=== PATIENT | male | born 1995 | race Caucasian/White ===

== ENCOUNTER 2020-05-10 11:01 | Emergency (ER) | payer BC, SELFPAY ==
--- NOTE | 2020-05-10 11:03 | ED.GENADULT ---
HPI - General Adult General Chief complaint: Wound/Laceration Stated complaint: Laceration to chin Time Seen by Provider: 05/10/20 11:03 Source: patient Mode of arrival: ambulatory Limitations: no limitations History of Present Illness HPI narrative: 24-year-old male patient presents to the [facility] with complaints of a chin laceration. Patient states he hit it on a metal bar today while working. Patient states his last tetanus shot was before he went into high school. Patient denies any fevers, body aches or chills. Related Data Home Medications Medication Instructions Recorded Confirmed No Home Medications 05/10/20 05/10/20 Allergies Allergy/AdvReac Type Severity Reaction Status Date / Time No Known Allergies Allergy Verified 05/10/20 11:35 Review of Systems Review of Systems: Narrative: CONSTITUTIONAL: Denies fever, chills, or sweats. EYES: Denies visual changes, redness, or discharge. ENT: Denies rhinorrhea, congestion, sore throat, or otalgia. CARDIOVASCULAR: Denies chest pain, palpitations, or edema. RESPIRATORY: Denies cough or dyspnea. GASTROINTESTINAL: Denies abdominal pain, nausea, vomiting, or diarrhea. GENITOURINARY: Denies dysuria or hematuria. SKIN: Denies rash or itching. Positive laceration to chin. MUSCULOSKELETAL: Denies back pain, joint pain, or myalgia. NEUROLOGIC: Denies headache, numbness, or weakness. PSYCHIATRIC: Denies anxiety or depression. [facility] Social History Social History Gender identity (if verbalized by the patient): Male Comments At the time of my signature I agree with nursing past medical history, surgical, social, and family history. There is no relevant family history pertinent to the presenting complaint. Exam Narrative: Exam Narrative: GENERAL: Well-appearing, well-nourished, and in no acute distress. HEAD: Normocephalic, atraumatic. EYES: PERRLA and EOMI. ENT: Nares clear, no rhinorrhea or epistaxis. Mucous membranes moist. NECK: Supple. No lymphadenopathy CHEST: Clear to auscultation. No respiratory distress. HEART: Regular rate and rhythm. No murmur heard. Normal peripheral pulses. ABDOMEN: Soft, nontender, nondistended, normal active bowel sounds. EXTREMITIES: Normal range of motion. No edema. SKIN: Warm, dry, no rash. Patient has approximately 1 cm laceration to the chin that appears superficial. No active bleeding at this time. No large gaping noted. Patient has good range of motion to the chin. NEURO: No focal deficits. Alert and oriented x3. Course Vital Signs Vital signs: Vital Signs Temperature 36.3 C L 05/10/20 11:19 Pulse Rate 76 05/10/20 11:19 Respiratory Rate 16 05/10/20 11:19 Blood Pressure 128/80 05/10/20 11:19 Pulse Oximetry 100 05/10/20 11:19 Temperature 36.3 C L 05/10/20 11:19 Pulse Rate 76 05/10/20 11:19 Respiratory Rate 16 05/10/20 11:19 Blood Pressure 128/80 05/10/20 11:19 Pulse Oximetry 100 05/10/20 11:19 Vital signs reviewed Procedures Laceration Laceration 1: Date: 05/10/20 Time: 11:58 Site: face Size (cm): 1 Description: linear Depth: simple, single layer Local Anesthetic: none Pre-repair: wound explored and irrigated ====== Skin Level ====== Skin layer closed with: dermabond and steri strips ====== Subcutaneous Layer ====== ====== Muscle Layer ====== ====== Tendon Layer ====== Dressing: The Procedure was explained and verbal consent was obtained. Copious irrigation was done with saline and Shur-Clens and the wound was explored. There was no foreign body or deep structure injury noted. Patient had good range of motion. Wound edges were approximated with good alignment using Dermabond and Steri-Strips. There were 2 Steri-Strips placed. nonadherent dressing over it and taped in place. The patient tolerated the procedure well without adverse effects.
[2020-05-10 11:19] VITALS: BP 128/80; PULSE 76; RESP 16; TEMP 36.3; O2SAT 100
[2020-05-10] MEDS: TETANUS,DIPHTHERIA,AC PERTUSSIS ADULT (0.5 ML) BOOSTRIX IM (12:13)
== END 2020-05-10 12:28 | disposition home or self-care (01) ==
PROVIDERS: Emergency Provider Nurse Practitioner Family
DX: S01.81XA Laceration without foreign body of other part of head, initial encounter (principal); W22.8XXA Striking against or struck by other objects, initial encounter; Y99.0 Civilian activity done for income or pay; Z23 Encounter for immunization
CPT/HCPCS: 12001; 90471; 90715; 99202; G0463

== ENCOUNTER 2021-06-10 09:19 | Emergency (ER) | payer OTHER, SELFPAY ==
[2021-06-10 09:48] VITALS: BP 125/72; PULSE 77; RESP 16; TEMP 36.1; O2SAT 100
--- NOTE | 2021-06-10 10:29 | ED.URI ---
HPI - URI/Sore Throat General Chief Complaint: Upper Respiratory Infection Stated Complaint: Sore Throat Time Seen by Provider: 06/10/21 10:29 Source: patient Mode of arrival: ambulatory Limitations: no limitations History of Present Illness HPI Narrative: 25-year-old male presents with complaint of sore throat, chills, body aches, fatigue that started last night. States that when he went into work. His temperature scanned at 100.4. States that now he has to stay off work for 5 days and take a Covid on test on fifth day to return. Patient is concerned that he may have strep throat. No strep exposure. Denies nausea vomiting. Denies cough. no chest pain or shortness of breath. All systems reviewed and negative except as noted above. Related Data Home Medications Medication Instructions Recorded Confirmed No Home Medications 05/10/20 06/10/21 Allergies Allergy/AdvReac Type Severity Reaction Status Date / Time No Known Allergies Allergy Verified 06/10/21 10:26 Review of Systems Review of Systems: CONSTITUTIONAL: Reports fever, chills, or sweats. EYES: Denies visual changes, redness, or discharge. ENT: Denies rhinorrhea, congestion. Reports sore throat. Denies otalgia. CARDIOVASCULAR: Denies chest pain, palpitations, or edema. RESPIRATORY: Denies cough or dyspnea. GASTROINTESTINAL: Denies abdominal pain, nausea, vomiting, or diarrhea. GENITOURINARY: Denies dysuria or hematuria. SKIN: Denies rash or itching. MUSCULOSKELETAL: Denies back pain, joint pain, or myalgia. NEUROLOGIC: Denies headache, numbness, or weakness. PSYCHIATRIC: Denies anxiety or depression. All other systems reviewed are negative, except as documented in HPI. PMFSH Social History Social History Gender identity (if verbalized by the patient): Male Comments At time of signature, agree with nursing past medical, surgical, social and family history. There is no relevant family history pertinent to the presenting complaint. Exam Narrative: GENERAL: This is a well-nourished, well-developed patient, in no apparent distress. HEAD: normocephalic, atraumatic. EYES: PERRL. Sclera clear/white. Vision is grossly intact. EARS: External ears normal, auditory canals clear and without drainage, TMs normal without perforation. Hearing grossly intact. NOSE: External nose normal with no obvious nasal discharge, nares without redness, no rhinorrhea. THROAT: Mucous membranes moist, erythema to posterior pharynx. NECK: Neck supple, non-tender without lymphadenopathy, masses or thyromegaly. CARDIOVASCULAR: Regular rate and rhythm without murmurs, gallops, or rubs. RESPIRATORY: Clear to auscultation. Breath sounds equal bilaterally. No wheezes, rales, or rhonchi. SKIN: warm, Dry, intact with no suspicious lesions or rash, good texture and turgor. NEURO: awake, alert, and oriented to person, place and time. There were no obvious focal neurologic abnormalities. EXTREMITIES: Normal range of motion to all extremities. Course Course Level of Care: Express Care Visit Vital Signs Vital signs: Vital Signs Temperature 36.1 C L 06/10/21 09:48 Pulse Rate 77 06/10/21 09:48 Respiratory Rate 16 06/10/21 09:48 Blood Pressure 125/72 06/10/21 09:48 Pulse Oximetry 100 06/10/21 09:48 Temperature 36.1 C L 06/10/21 09:48 Pulse Rate 77 06/10/21 09:48 Respiratory Rate 16 06/10/21 09:48 Blood Pressure 125/72 06/10/21 09:48 Pulse Oximetry 100 06/10/21 09:48 Reviewed MDM - URI/Sore Throat MDM Narrative Medical decision making narrative: Patient is aware of diagnosis, understands and agrees to treatment plan. Anticipatory guidance given. Patient agrees to follow-up as directed and is aware of reasons to seek care at the emergency department. Portions of this record may have been created with voice recognition software Differential Diagnosis Differential diagnosis: Likely upper respirato
== END 2021-06-10 10:38 | disposition home or self-care (01) ==
PROVIDERS: Emergency Provider Nurse Practitioner Family
DX: J02.8 Acute pharyngitis due to other specified organisms (principal)
CPT/HCPCS: 87081; 87880; 99213; G0463

== ENCOUNTER 2021-07-31 07:36 | Emergency (ER) | payer OTHER, SELFPAY ==
--- NOTE | 2021-07-31 08:07 | ECG_ITS ---
Measurements Intervals [place] Rate: 71 P: 81 IN: 149 QRS: 81 QRSD: 102 T: 47 QT: 368 QTc: 400 Interpretive Statements SINUS RHYTHM ST ELEVATION, LIKELY EARLY REPOLARIZATION BORDERLINE ECG NO PREVIOUS ECG AVAILABLE FOR COMPARISON Electronically Signed On 07-31-2021 10:26:43 CDT by Rory Reynolds M.D.
--- NOTE | 2021-07-31 08:08 | ED.BACK ---
HPI - Back Pain/Injury General Chief Complaint: GI Bleed Stated Complaint: nasal/anal bleeding, heart palp Time Seen by Provider: 07/31/21 07:39 History of Present Illness HPI Narrative: 25-year-old male with history of depression presenting to the emergency department for evaluation of nasal bleeds and rectal bleeds. Patient states over the last few days he has had increased nasal bleeds. Patient states he had been scratching the inside of his nose due to the itching. Patient states he does have the air conditioner running in his house. Patient states that the context of 2 bleeds were with exertion and lifting. Bleeds did resolve spontaneously. Patient has no active bleeding at this time. Patient also does report passing some bright red blood with bowel movements. Patient did have recent diarrhea and states that he now has solid stool and when passing solid stool he does have some blood mixed with the stool. Patient denies any bowel movements of just blood. Patient denies any prior history of hemorrhoids. Patient does have a prior history of appendicitis. Related Data Home Medications Medication Instructions Recorded Confirmed No Home Medications 05/10/20 06/10/21 Allergies Allergy/AdvReac Type Severity Reaction Status Date / Time No Known Allergies Allergy Verified 07/31/21 08:31 Review of Systems Review of Systems: CONSTITUTIONAL: Denies fever, chills, or sweats. EYES: Denies visual changes, redness, or discharge. ENT: See HPI CARDIOVASCULAR: Denies chest pain, palpitations, or edema. RESPIRATORY: Denies cough or dyspnea. GASTROINTESTINAL: See HPI GENITOURINARY: Denies dysuria or hematuria. SKIN: Denies rash or itching. MUSCULOSKELETAL: Denies back pain, joint pain, or myalgia. NEUROLOGIC: Denies headache, numbness, or weakness. PSYCHIATRIC: Does report depression PMFSH Social History Social History Gender identity (if verbalized by the patient): Male Exam Narrative: APPEARANCE: Well appearing, no pain, no distress, well-nourished. HEAD: normocephalic, atraumatic. EYES: PERRLA/EOMI, conjunctivae clear. NOSE: no drainage or epistaxis Areas of friable mucosa with no active bleeding EARS:TMS clear with good light reflex. THROAT: Pharynx clear, no exudate. NECK: Supple. No adenopathy, no masses. RESPIRATORY: Airway patent, respirations nonlabored. Clear to auscultation bilaterally, no rales, rhonchi, wheezing. CARDIOVASCULAR: Regular rate and rhythm without murmurs rubs or gallops. ABDOMINAL: Soft, nontender, nondistended, normal bowel sounds. Nonthrombosed external hemorrhoid on ALEKSANDRA. Hemoccult negative on ALEKSANDRA. No internal hemorrhoids palpated. MUSCULOSKELETAL: Moves all extremities. Strength/ROM intact, No edema, No calf tenderness. NEURO: Alert. Cranial nerves II through XII intact. Grossly intact SKIN: Warm, dry. Normal Color Course Course Emergency Course: Patient is Hemoccult negative on the ALEKSANDRA. No active bleeding. Patient was updated on results of the work-up. Patient declined wanting to talk to a counselor. Patient denies any current suicidal ideation but states he has had suicidal ideation previously. Suspect that the nasal bleeding is due to dry air or physical irritation of the nasal mucosa. Rectal bleeding is most likely due to internal hemorrhoids secondary to increased time spent stooling due to the diarrhea. Patient was educated on preventative care and on the importance of close follow-up with a primary care physician. Vital Signs Vital signs: Vital Signs Temperature 98.0 F 07/31/21 08:15 Pulse Rate 74 07/31/21 08:15 Respiratory Rate 18 07/31/21 08:15 Blood Pressure 119/77 07/31/21 08:15 Pulse Oximetry 99 07/31/21 08:15 Oxygen Delivery Room Air 07/31/21 08:15 Temperature 98.0 F 07/31/21 08:15 Pulse Rate 73 07/31/21 10:19 Respiratory Rate 16 07/31/21 10:19 Blood Pressure 103/68 06/0
[2021-07-31 08:15] VITALS: BP 119/77; PULSE 74; RESP 18; TEMP 36.7; O2SAT 99
[2021-07-31] MEDS: SODIUM CHLORIDE 0.9% IV 1,000 ML 999 ML IV CONT (08:34)
[2021-07-31 08:43] LABS: Basophils Percent Auto 0.5 % (0.2-1.2); Eosinophils Absolute Auto 0.1 K/mm3 (0-0.3); Eosinophils Percent Auto 0.9 % (0-4.4); Hematocrit 39.3 % (42.0-52.0); Hemoglobin 13.5 g/dL (14.0-18.0); Immature Granulocyte Absolute 0.02 K/mm3 (0.00-0.031); Immature Granulocyte Percent A 0.3 % (0-0.5); Lymphocytes Absolute Auto 1.25 K/mm3 (0.9-3.2); Lymphocytes Percent Auto 19.7 % (18.3-44.2); Mean Corpuscular HGB Conc 34.4 g/dl (32-36); Mean Corpuscular Hemoglobin 30.8 pg (26-34); Mean Corpuscular Volume 89.5 fl (80-100); Mean Platelet Volume 10.4 fl (7.4-10.4); Monocytes Absolute Auto 0.6 K/mm3 (0.1-0.6); Monocytes Percent Auto 9.8 % (2.6-8.5); Neutrophils Absolute Auto 4.4 K/mm3 (1.3-6.7); Neutrophils Percent Auto 68.8 % (45.5-73.1); Platelet Count Result 180 k/mm3 (150-375); Red Blood Count 4.39 M/mm3 (4.6-6.20); Red Cell Distribution Width 12.7 % (11.5-14.5); White Blood Count 6.4 K/mm3 (4.5-10.0)
[2021-07-31 08:48] LABS: Lactic Acid Reflex 0.7 mmol/L (0.7-2.0); Magnesium 1.8 mg/dL (1.6-2.3)
[2021-07-31 08:50] LABS: Alanine Aminotransferase 24 U/L (6-50); Albumin Level 4.6 g/dL (3.5-5.1); Alkaline Phosphatase 66 U/L (38-126); Anion Gap 9 mmol/L (8-16); Aspartate Amino Transferase 25 U/L (17-59); Blood Urea Nitrogen 16 mg/dL (9-20); Calcium 8.7 mg/dL (8.4-10.2); Carbon Dioxide 23 mmol/L (22-30); Chloride 107 mmol/L (98-107); Estimated CRCL calculation 119 ml/min; Estimated Glomerular Filt Rate > 60; Glucose 94 mg/dL (65-110); Potassium 3.6 mmol/L (3.4-5.0); Sodium 139 mmol/L (137-145)
[2021-07-31 08:56] LABS: INR 1.3; Prothrombin Time 15.5 Seconds (11.1-14.7)
[2021-07-31 08:57] LABS: Partial Thromboplastin Time 28.8 SECONDS (22.3-36.8)
[2021-07-31 09:18] VITALS: BP 112/68; PULSE 63; RESP 18; O2SAT 100
[2021-07-31 09:31] LABS: Thyroid Stimulating Hormone Reflex 0.342 uIU/mL (0.465-4.68)
[2021-07-31 10:19] VITALS: BP 103/68; PULSE 73; RESP 16; O2SAT 98
[2021-07-31 10:20] LABS: Free T4 Free Thyroxine Reflex 1.04 ng/dL (0.78-2.19)
[2021-07-31 11:11] LABS: Total Triiodothyronine (T3) 1.34 NG/ML (0.97-1.69)
== END 2021-07-31 10:21 | disposition home or self-care (01) ==
PROVIDERS: Emergency Provider Emergency Medicine
DX: R04.0 Epistaxis (principal); K64.9 Unspecified hemorrhoids
CPT/HCPCS: 36415; 80053; 83605; 83735; 84439; 84443; 84480; 85025; 85610; 85730; 93005; 96360; 99283; J7030

== ENCOUNTER 2022-01-06 10:14 | Emergency (ER) | payer OTHER, SELFPAY ==
--- NOTE | ~2022-01-06 | XR_ITS ---
EXAMINATION: XR tibia fibula LT 2V INDICATION: Left leg pain TECHNIQUE: Two views of the left tibia and fibula are obtained on four radiographs. COMPARISON: None available FINDINGS: No fracture, dislocation, or subluxation. The bones, soft tissues, and joint spaces are nor mal. IMPRESSION: 1. No acute osseous abnormality. Reviewed, dictated and finalized at location A. [employer]
[2022-01-06 10:18] VITALS: BP 118/92; PULSE 72; RESP 12; TEMP 37.1; O2SAT 98
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
== END 2022-01-06 12:11 | disposition home or self-care (01) ==
PROVIDERS: Emergency Provider Nurse Practitioner Family
DX: S80.12XA Contusion of left lower leg, initial encounter (principal); V49.88XA Car occupant (driver) (passenger) injured in other specified transport accidents, initial encounter
CPT/HCPCS: 73590; 99283

== ENCOUNTER 2022-06-24 15:04 | Emergency (ER) | payer OTHER, SELFPAY ==
--- NOTE | 2022-06-24 15:10 | ED.URI ---
HPI - URI/Sore Throat General Chief Complaint: Upper Respiratory Infection Stated Complaint: Sore Throat Time Seen by Provider: 06/24/22 15:10 Source: patient, RN notes reviewed and old records reviewed Mode of arrival: ambulatory Limitations: no limitations History of Present Illness HPI Narrative: 26-year-old male presents to the [facility] with complaints of a sore throat since last night. Patient reports that his girlfriend and child were here yesterday diagnosed with strep No treatment prior to arrival MD elicited complaint: sore throat Onset (ago): hour(s) Treatments prior to arrival: none Related Data Home Medications Medication Instructions Recorded Confirmed No Home Medications 06/24/22 06/24/22 Allergies Allergy/AdvReac Type Severity Reaction Status Date / Time No Known Allergies Allergy Verified 07/31/21 08:31 Review of Systems Review of Systems: All systems reviewed & are unremarkable except as noted in HPI and below Constitutional: Constitutional: Reports no additional constitutional complaints Eyes: Eyes: Reports no additional eye complaints ENT: Reports as per HPI Cardiovascular: Cardiovascular: Reports no additional cardiovascular complaints, Denies chest pain and Denies dyspnea Respiratory: Respiratory: Reports no additional respiratory complaints, Denies chest congestion, Denies cough and Denies dyspnea Gastrointestinal: Gastrointestinal: Reports no additional gastrointestinal complaints, Denies abdominal pain, Denies nausea and Denies vomiting Musculoskeletal: Musculoskeletal: Reports no additional musculoskeletal complaints Integumentary/Breasts: Skin/Breast: Reports system reviewed and no additional complaints, except as docu Neurologic: Reports system reviewed and no additional complaints, except as documented Psychiatric: Psychiatric: Reports no additional psychiatric complaints Allergic/Immunologic: Allergic/Immunologic: Reports no additional allergic/immunologic complaints PMFSH Social History Social History Gender identity (if verbalized by the patient): Male Comments At the time of my signature, I reviewed and agree with the nursing past medical, surgical, social, and family history. There is no relevant family history pertinent to the patient complaint. Exam Const: General: cooperative, healthy appearing, comfortable, no acute distress, well developed, alert and well nourished Nutritional Appearance: well nourished Orientation/consciousness: patient oriented x3 Limitations: no limitations HENMT: Head: normal to inspection Ears: hearing grossly normal bilaterally and external ears normal Face/Nose/Sinus: Normal external nose present, Normal nares present, Normal nasal mucous membranes and turbinates present and normal facial exam Face and sinus: normal facial exam Mouth: Yes Normal oral and palatal mucosa present, Yes lip normal and Yes moist mucous membranes Throat: posterior oropharynx normal, tonsils normal, uvula midline and postnasal drainage Eyes: General: appearance normal, both eyes and all related structures Alignment and Position: alignment normal Periorbital: periorbital findings normal Conjunctivae: conjunctivae normal Pupils: Equal, round and reactive pupils present EOM: EOMs intact bilaterally Neck: Neck: normal visual inspection, full ROM, no lymphadenopathy and no meningeal signs Chest: Chest palpation & inspection: normal inspection of the chest Resp: Effort & Inspection: normal respiratory effort and able to speak in complete sentences Auscultation: clear to auscultation bilaterally, no crackles, no rales, no rhonchi and no wheezes Cardio: Rate: regular rate Rhythm: regular rhythm Back/Spine/Pelvis: Cervical Spine: cervical ROM normal Thoracic/Lumbar Spine: No thoracic spinal tenderness Skin: General skin exam: normal color and no rashes or lesions noted Lesions: no lesions Rashes: no
[2022-06-24 15:23] VITALS: BP 131/55; PULSE 99; RESP 20; TEMP 36.6; O2SAT 99
== END 2022-06-24 15:35 | disposition home or self-care (01) ==
PROVIDERS: Emergency Provider Nurse Practitioner
DX: J02.9 Acute pharyngitis, unspecified (principal)
CPT/HCPCS: 87081; 87880; 99213; G0463

== ENCOUNTER 2024-02-28 19:02 | Emergency (ER) | payer BC, SELFPAY ==
[2024-02-28 19:12] VITALS: BP 140/84; PULSE 74; RESP 16; TEMP 36; O2SAT 99
--- NOTE | 2024-02-28 19:26 | ED_ITS ---
HPI - URI/Sore Throat General Chief Complaint: Upper Respiratory Infection Stated Complaint: Sore Throat/Sinus/Chest/Vomiting Time Seen by Provider: 02/28/24 19:26 Source: patient, RN notes reviewed and old records reviewed Mode of arrival: ambulatory Limitations: no limitations History of Present Illness HPI Narrative: Patient presents with complaints of six hours of subjective fever, congestion, nausea, vomiting. He denies any abdominal pain. He reports that he has been taking Mucinex for his symptoms. He voices no other concerns or complaints at this time Related Data Home Medications ?Medication ?Instructions ?Recorded ?Confirmed ?Last Taken ?Type No Home Medications 06/24/22 02/28/24 Unknown History Allergies Allergy/AdvReac Type Severity Reaction Status Date / Time No Known Allergies Allergy Verified 02/28/24 19:04 Review of Systems Review of Systems: All systems reviewed & are unremarkable except as noted in HPI and below Constitutional: Constitutional: Reports no additional constitutional complaints and Reports body ache(s) ENT: Reports system reviewed and no additional complaints, except as documented Cardiovascular: Cardiovascular: Reports no additional cardiovascular complaints Respiratory: Respiratory: Reports no additional respiratory complaints Gastrointestinal: Gastrointestinal: Reports no additional gastrointestinal complaints, Reports GI cramping, Reports diarrhea, Reports nausea and Reports vomiting PMFSH Social History Social History Gender identity (if verbalized by the patient): Male Comments At the time of my signature, I reviewed and agree with the nursing past medical, surgical, social, and family history. There is no relevant family history pertinent to the patient complaint. Exam Const: General: cooperative, no acute distress, alert and awake Orientation/consciousness: oriented to person, oriented to place and oriented to time HENMT: Head: normal to inspection Ears: TM's normal bilaterally Mouth: Yes moist mucous membranes Throat: posterior oropharynx normal Resp: Effort & Inspection: normal respiratory effort and able to speak in complete sentences Auscultation: clear to auscultation bilaterally, no crackles, no rales, no rhonchi and no wheezes Cardio: Palpation: normal PMI Rate: regular rate Rhythm: regular rhythm Heart sounds: S1 normal heart sound present and S2 normal heart sound present Neuro: General: oriented to person, oriented to place and oriented to time Cranial nerves: Yes CN's II-XII intact bilaterally Psych: Appearance: grossly normal Thought process: Normal thought process present Insight: Good insight present (Psych) Judgement: Good judgement present (Psych) Course Course Level of Care: Express Care Visit Vital Signs Vital signs: Vital Signs Temperature 96.8 F L 02/28/24 19:12 Pulse Rate 74 02/28/24 19:12 Respiratory Rate 16 02/28/24 19:12 Blood Pressure 140/84 02/28/24 19:12 Pulse Oximetry 99 02/28/24 19:12 Oxygen Delivery Room Air 02/28/24 19:12 Temperature 96.8 F L 02/28/24 19:12 Pulse Rate 74 02/28/24 19:12 Respiratory Rate 16 02/28/24 19:12 Blood Pressure 140/84 02/28/24 19:12 Pulse Oximetry 99 02/28/24 19:12 Oxygen Delivery Room Air 02/28/24 19:12 Reviewed MDM - URI/Sore Throat MDM Narrative Medical decision making narrative: Reassuring physical exam. Patient nontoxic appearing, stable for discharge home with supportive care measures. Discharge instructions reviewed with patient, as well as provided in writing per nursing staff. The instructions also include specific and strict return/GO TO THE ER as well as f/u information. All questions have been answered, and the patient deny any further questions with discharge and discharge plan. Some parts of this dictation were generated by voice recognition software and may contain typographical and/or grammatical inaccuracies. Differential Diagnosis Differential diagnosis: Likely upper respiratory infection, otitis media and sinusitis Medical Records Attestation: I reviewed the patient's medical records. Lab Data Attestation: I reviewed the patient's lab results. Discharge Plan Discharge Clinical Impression: Viral infection Patient Disposition: Home, Self-Care Condition: Stable Instructions: Antibiotic Form, Viral Syndrome (ED) Additional Instructions: Take [id number] medications per package instructions to bernstein your symptoms. Follow-up with primary care provider. Emergency department for new or worsening symptoms Patient Language: Citizen Of [place] Prescriptions: No Action No Home Medications Follow-up/Referrals: PHYSICIAN,UNIVERSITY ARCHIVIST [Primary Care Provider] - Stand Alone Forms: Work/School Release IP Time of Disposition: 19:36
[2024-02-28 19:31] LABS: EDINFLUASCREEN Negative (Negative); EDINFLUBSCREEN Negative (Negative)
[2024-02-28 19:40] LABS: EDCOVIDSCREEN Negative (Negative)
== END 2024-02-28 19:40 | disposition home or self-care (01) ==
PROVIDERS: Emergency Provider Nurse Practitioner Family
DX: B34.9 Viral infection, unspecified (principal); Z20.822 Contact with and (suspected) exposure to COVID-19
CPT/HCPCS: 87426; 87804; 99212; G0463